=== PATIENT | male | born 1975 | race Caucasian/White ===

== ENCOUNTER 2017-01-01 19:03 | Emergency (ER) | payer SELFPAY ==
[2017-01-01 19:28] VITALS: BP 127/75; PULSE 93; RESP 16; TEMP 97.9; O2SAT 98
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
== END 2017-01-01 20:05 | disposition home or self-care (01) ==
LOC: C.ER 19:03
DX: M25.512 Pain in left shoulder (principal); M54.5 Low back pain